=== PATIENT | female | born 1950 | race Caucasian/White ===

== ENCOUNTER 2020-03-03 22:22 | Inpatient (IN) | payer MEDICARE, OTHER ==
[~2020-03-03] VITALS: Ht 157.5 cm; Wt 77.3 kg
[2020-03-03 22:56] LABS: BASOPHILS # (AUTO) 0.1 X10'3 (0-0.2); BASOPHILS % (AUTO) 0.8 % (0-1); EOSINOPHILS # (AUTO) 0.1 X10'3 (0-0.9); EOSINOPHILS % (AUTO) 0.7 % (0-6); HEMATOCRIT 42.2 % (35.0-45.0); HEMOGLOBIN 14.2 g/dl (12.0-16.0); LYMPHOCYTES # (AUTO) 5.6 X10'3 (1.1-4.8); MEAN CORPUSCULAR HEMOGLOBIN 31.8 PG (27.0-31.0); MEAN CORPUSCULAR HGB CONC 33.7 g/dL (33.0-36.5); MEAN CORPUSCULAR VOLUME 94.6 FL (78-98); MEAN PLATELET VOLUME 9.2 FL (7.4-10.4); MONOCYTES # (AUTO) 1.3 X10'3 (0-0.9); MONOCYTES % (AUTO) 8.1 % (2-12); NEUTROPHILS # (AUTO) 8.5 X10'3 (1.8-7.7); NEUTROPHILS % (AUTO) 54.4 % (42-75); PLATELET COUNT 377 X10'3 (140-440); RED BLOOD COUNT 4.46 X10'6 (4.20-5.60); RED CELL DISTRIBUTION WIDTH 13.9 % (11.5-14.5); WHITE BLOOD COUNT 15.6 X10'3 (4.5-11.0)
[2020-03-03] MEDS ORDERED: pantoprazole 40 MG vial IV ONE (23:15)
[2020-03-03] MEDS ORDERED: proMETHazine 25mg rectal suppository RC ONE (23:15)
[2020-03-03] MEDS ORDERED: LORazepam 2 mg/ml vial IV ONE (23:15)
[2020-03-03] MEDS ORDERED: normal saline 1000ML IV soln IVB ONE (23:15)
[2020-03-03 23:52] LABS: ALANINE AMINOTRANSFERASE 25 U/L (12-78); ALBUMIN 3.7 G/DL (3.4-5.0); ALBUMIN/GLOBULIN RATIO 1.1 (1.1-1.5); ALKALINE PHOSPHATASE 99 IU/L (46-116); ANION GAP 12 (8-16); ASPARTATE AMINO TRANSFERASE 26 U/L (10-37); BILIRUBIN,TOTAL 0.4 MG/DL (0.1-1.0); BLOOD UREA NITROGEN 6 MG/DL (7-18); BUN/CREATININE RATIO 7.7 (6.6-38.0); CALCIUM 10.1 MG/DL (8.5-10.1); CHLORIDE 106 MMOL/L (99-107); CREATININE 0.78 MG/DL (0.40-0.90); GLUCOSE 129 MG/DL (70-104); LIPASE 89 U/L (73-393); SODIUM 145 MMOL/L (135-145); TOTAL CARBON DIOXIDE 27.5 MMOL/L (24-32); TOTAL PROTEIN 7.2 G/DL (6.4-8.2); eGFR 73 ML/MIN
[2020-03-03 23:56] LABS: POTASSIUM 2.8 MMOL/L (3.5-5.1)
[2020-03-04 00:25] LABS: CLARITY,URINE CLOUDY (Clear); COLOR,URINE YELLOW (Yellow); GLUCOSE, URINE NEGATIVE (Neg); KETONES,URINE 40 mg/dl (Neg); LEUKOCYTE ESTERASE ,URINE SMALL (Neg); NITRITES, URINE NEGATIVE (Neg); OCCULT BLOOD,URINE NEGATIVE (Neg); PROTEIN,URINE TRACE mg/dl (Neg)
[2020-03-04 00:29] LABS: UA COLLECTION TYPE CLN CATCH MIDSTREAM
[2020-03-04 00:33] LABS: BACTERIA,URINE 3+ /HPF (Neg); RBC,URINE NONE SEEN /HPF (0-2); SQUAMOUS EPITHELIAL CELL,UR FEW /LPF (FEW)
[2020-03-04] MEDS ORDERED: CefTRIAXone/D5W-Rocephin 1gm 50 ML IV ONE (01:05)
[2020-03-04] MEDS: normal saline 1000ml 1,000 ML IV SCH ×3 (01:07→14:29)
[2020-03-04] MEDS ORDERED: mag hydrox/Alum hydrox/simeth 30ml oral suspension PO PRN (01:10)
[2020-03-04] MEDS ORDERED: magnesium 4gm in 100ml NS 100 ML IV PRN (01:10)
[2020-03-04] MEDS ORDERED: potassium CL 10mEq/100ml bag 100 ML IV PRN (01:10)
[2020-03-04] MEDS ORDERED: potassium Cl 20 mEq SR tablet PO PRN (01:10)
[2020-03-04] MEDS ORDERED: magnesium hydroxide 30ml (MOM) UD suspension PO PRN (01:10)
[2020-03-04] MEDS ORDERED: magnesium Cl slow-release 64mg tablet PO PRN (01:10)
[2020-03-04] MEDS ORDERED: magnesium 2GM in 50ml NS 50 ML IV PRN (01:10)
[2020-03-04] MEDS ORDERED: bisacodyl 10mg suppository rectal RC PRN (01:10)
[2020-03-04] MEDS ORDERED: acetaminophen 325mg tablet PO PRN (01:10)
[2020-03-04] MEDS: potassium Cl 10 mEq/100mL bag IV SCH ×2 (01:50→04:16)
[2020-03-04] MEDS: ondansetron/PF 4mg/2ml inj IV PRN ×3 (01:50→18:49)
--- NOTE | 2020-03-04 02:06 | NUR ---
attempted to reach surgical to give report. unable to at this time. pt currenty getting iv abx.
[2020-03-04] MEDS ORDERED: LOSA25TA96 PO (02:27)
[2020-03-04] MEDS ORDERED: TRAZ-256 PO (02:27)
[2020-03-04] MEDS ORDERED: AMLO10TA PO (02:27)
[2020-03-04] MEDS ORDERED: PANT-47 PO (02:27)
[2020-03-04] MEDS ORDERED: MULT-1141 PO (02:27)
[2020-03-04] MEDS ORDERED: ASPI81TA52 PO (02:27)
[2020-03-04] MEDS ORDERED: ALBU0.63 NEB (02:27)
[2020-03-04] MEDS ORDERED: ZONI100C31 PO (02:27)
[2020-03-04] MEDS ORDERED: MOME17SP BOTHNARES (02:27)
[2020-03-04] MEDS ORDERED: DIPH25CA83 PO (02:27)
[2020-03-04 03:05] VITALS: BP 157/94
[2020-03-04] MEDS ORDERED: HYDROcodone/acetaminophen 5mg/325mg tablet PO PRN (03:35)
[2020-03-04] MEDS ORDERED: traMADol 50MG tablet PO PRN (03:35)
[2020-03-04] MEDS ORDERED: ROSU40TA PO (03:48)
[2020-03-04] MEDS ORDERED: SPIR25TA5 PO (03:48)
[2020-03-04] MEDS ORDERED: LACT1CAP65 PO (03:48)
[2020-03-04] MEDS ORDERED: MONT10TA26 PO (03:48)
[2020-03-04] MEDS ORDERED: AMYL1TAB PO (03:48)
[2020-03-04] MEDS ORDERED: TRAM50TA2 PO ×2 (03:48→11:16)
[2020-03-04] MEDS ORDERED: LYR75C PO (03:48)
--- NOTE | 2020-03-04 03:49 | NUR ---
dipesh rn made aware, still working on home med rec, should be done in 10 minutes. She will page hospitalist.
--- NOTE | 2020-03-04 04:20 | NUR ---
PAGER ID: [phone] MESSAGE: dipesh Erwin [phone]. re: Dot Ashby 341a. Zofran and Phenergan given, ineffective.
--- NOTE | 2020-03-04 04:55 | NUR ---
PAGER ID: [phone] MESSAGE: Evelyn Erwin [phone]. Re: Dot Ashby rm 341. Pt requesting "1mg IV Ativan" to help with her nausea, anxiety, and insomnia.
--- NOTE | 2020-03-04 04:56 | NUR ---
PAGER ID: [phone] MESSAGE: Re: Dot Ashby 341. Med Rec completed on pt.
[2020-03-04] MEDS: LORazepam 2 mg/ml vial IV PRN ×4 (05:02→18:49)
--- NOTE | 2020-03-04 05:32 | NUR ---
PAGER ID: [phone] MESSAGE: re: Dot ashton rm 341. Pt does not have a diet ordered and would like to talk about code status (may not want full code).
[2020-03-04] MEDS ORDERED: albuterol 1.25 MG/3 ML (1/2 strength) nebule NEB PRN (05:35)
--- NOTE | 2020-03-04 06:48 | NUR ---
PAGER ID: [phone] MESSAGE: Concepcion-Surg [phone] Re: Isma 341 please call would like to know if I can recheck her K+ and Mg and she only received 1 dose abx in ER
[2020-03-04 07:00] VITALS: BP 149/84
--- NOTE | 2020-03-04 07:01 | NUR ---
Spoke to Gilmar Rosales to verify isolation status on patient. Gilmar called me back after speaking to Dr Villasenor who states patient does not need to be in isolation.
[2020-03-04] MEDS ORDERED: pantoprazole 40mg Tablet.DR PO SCH (08:00)
[2020-03-04] MEDS: K and/or MAG REPLACEMENT MC SCH ×2 (08:00→20:00)
[2020-03-04] MEDS: lactobacillus rhamnosus 10,000 MMU CELLS/CAPSULE PO SCH (08:00)
[2020-03-04] MEDS ORDERED: atorvastatin 10mg tablet PO SCH (08:00)
[2020-03-04] MEDS: aspirin 81mg tablet.DR PO SCH (08:00)
[2020-03-04] MEDS: pregabalin 75mg capsule PO SCH ×2 (08:00→19:38)
[2020-03-04] MEDS: docusate sod 100mg capsule PO SCH ×2 (08:00→19:37)
[2020-03-04] MEDS: losartan 25mg tablet PO SCH (10:10)
[2020-03-04] MEDS: pantoprazole 40 MG vial IV SCH ×2 (10:10→19:37)
[2020-03-04] MEDS: CefTRIAXone/D5W-Rocephin 1gm 50 ML IV SCH (10:11)
[2020-03-04] MEDS: spironolactone 25 MG tablet PO SCH (10:11)
[2020-03-04] MEDS: amLODIPine 5mg tablet PO SCH (10:11)
[2020-03-04 10:42] LABS: ALBUMIN 3.1 G/DL (3.4-5.0); ANION GAP 11 (8-16); BLOOD UREA NITROGEN 4 MG/DL (7-18); BUN/CREATININE RATIO 6.3 (6.6-38.0); CALCIUM 9.4 MG/DL (8.5-10.1); CHLORIDE 111 MMOL/L (99-107); CREATININE 0.63 MG/DL (0.40-0.90); GLUCOSE 120 MG/DL (70-104); MAGNESIUM 1.7 MG/DL (1.5-2.4); SODIUM 146 MMOL/L (135-145); TOTAL CARBON DIOXIDE 23.9 MMOL/L (24-32); eGFR > 90 ML/MIN
[2020-03-04 10:44] LABS: POTASSIUM 2.9 MMOL/L (3.5-5.1)
[2020-03-04 10:45] LABS: BASOPHILS # (AUTO) 0.1 X10'3 (0-0.2); BASOPHILS % (AUTO) 1.1 % (0-1); EOSINOPHILS # (AUTO) 0.1 X10'3 (0-0.9); EOSINOPHILS % (AUTO) 1.5 % (0-6); HEMATOCRIT 35.3 % (35.0-45.0); HEMOGLOBIN 11.8 g/dl (12.0-16.0); LYMPHOCYTES # (AUTO) 3.1 X10'3 (1.1-4.8); LYMPHOCYTES % (AUTO) 38.4 % (21-51); MEAN CORPUSCULAR HEMOGLOBIN 31.8 PG (27.0-31.0); MEAN CORPUSCULAR HGB CONC 33.3 g/dL (33.0-36.5); MEAN CORPUSCULAR VOLUME 95.5 FL (78-98); MEAN PLATELET VOLUME 8.9 FL (7.4-10.4); MONOCYTES # (AUTO) 0.7 X10'3 (0-0.9); MONOCYTES % (AUTO) 8.7 % (2-12); NEUTROPHILS % (AUTO) 50.3 % (42-75); PLATELET COUNT 257 X10'3 (140-440); RED BLOOD COUNT 3.69 X10'6 (4.20-5.60); RED CELL DISTRIBUTION WIDTH 13.8 % (11.5-14.5)
[2020-03-04] MEDS: potassium CL 10mEq/100ml bag 100 ML IV PRN ×8 (10:53→20:14)
[2020-03-04] MEDS ORDERED: PREG100C55 PO (11:08)
[2020-03-04] MEDS ORDERED: BUPR150T6 PO (11:09)
[2020-03-04] MEDS ORDERED: ONDA4TAB12 PO (11:16)
[2020-03-04] MEDS ORDERED: LEVE500S9 PO (11:16)
[2020-03-04] MEDS ORDERED: APIX2.5T PO (11:16)
[2020-03-04] MEDS ORDERED: CLON0.1T PO (11:16)
[2020-03-04] MEDS ORDERED: LORA-269 PO (11:16)
[2020-03-04 12:00] VITALS: BP 135/73
--- NOTE | 2020-03-04 12:21 | NUR ---
Patient was wanting to speak with doctor regarding her code status. Dr Barajas aware. I went in to see patient with Dr Barajas who discussed code status with patient and patient stated that she does not want to be a full code she would like to be a DNR, Dr Barajas will make changes in orders.
--- NOTE | 2020-03-04 15:08 | NUR ---
Malnutrition consult: Pt admit for intractable n/v with abdominal pain, recently admitted at [facility] 01/02-02/06 positive for COVID and intubated for three weeks. Pt is now s/p trach and feeding tube, which have both been removed per H&P. TC to CLAUDINE Corey at [facility] who reports patient had inadequate nutrition at times during admit d/t difficulty tolerating TF however ultimately was able to tolerate Osmolite and was discharged on TF. Per RD pt had home health and ST and TF was discontinued d/t pt tolerating PO intake. CLAUDINE reports patient's first scaled wt was 87.5 kg taken 01/14 which fluctuated during admission to 84 kg then 89 kg, and ultimately was 86 kg on 02/03 just prior to discharge. Current documented wt is 77.27 kg however is not scaled. D/w RN need for obtaining a scaled weight to determine accuracy of wt loss. Pt currently on a clear liquid diet, pending documentation of PO intake. Pt with no documented decrease in muscle strength or edema. Pt appears well developed and well nourished per H&P. Pending scaled weight to assess for wt changes. Will f/u tomorrow. Addendum: 03/04/20 at [address] Amended: Links added.
--- NOTE | 2020-03-04 18:23 | NUR ---
Patient in room [facility] 341. I have received report from ABHISHEK Javier and had the opportunity to ask questions and assume patient care.
--- NOTE | 2020-03-04 18:37 | NUR ---
Problems reprioritized. Patient report given, questions answered & plan of care reviewed with Laura WEISS.
[2020-03-04 19:48] VITALS: BP 143/75
[2020-03-04] MEDS: atorvastatin 10mg tablet PO SCH (21:00)
[2020-03-04] MEDS: traZODone 50mg tablet PO SCH (21:17)
[2020-03-05] VITALS (7 sets, daily range): BP systolic 134–187; BP diastolic 65–106
[2020-03-05] MEDS: normal saline 1000ml 1,000 ML IV SCH ×2 (00:15→11:46)
[2020-03-05] MEDS: LORazepam 2 mg/ml vial IV PRN ×4 (04:09→19:51)
[2020-03-05] MEDS: ondansetron/PF 4mg/2ml inj IV PRN ×3 (04:15→19:47)
[2020-03-05 05:30] LABS: BASOPHILS # (AUTO) 0.1 X10'3 (0-0.2); BASOPHILS % (AUTO) 0.9 % (0-1); EOSINOPHILS # (AUTO) 0.3 X10'3 (0-0.9); EOSINOPHILS % (AUTO) 5.4 % (0-6); HEMATOCRIT 34.4 % (35.0-45.0); HEMOGLOBIN 11.4 g/dl (12.0-16.0); LYMPHOCYTES # (AUTO) 3.1 X10'3 (1.1-4.8); LYMPHOCYTES % (AUTO) 51.8 % (21-51); MEAN CORPUSCULAR HEMOGLOBIN 31.8 PG (27.0-31.0); MEAN CORPUSCULAR HGB CONC 33.2 g/dL (33.0-36.5); MEAN PLATELET VOLUME 9.3 FL (7.4-10.4); MONOCYTES # (AUTO) 0.5 X10'3 (0-0.9); MONOCYTES % (AUTO) 9.1 % (2-12); NEUTROPHILS % (AUTO) 32.8 % (42-75); PLATELET COUNT 222 X10'3 (140-440); RED BLOOD COUNT 3.58 X10'6 (4.20-5.60); RED CELL DISTRIBUTION WIDTH 13.7 % (11.5-14.5)
[2020-03-05 05:49] LABS: ALANINE AMINOTRANSFERASE 36 U/L (12-78); ALBUMIN 2.9 G/DL (3.4-5.0); ALBUMIN/GLOBULIN RATIO 1.1 (1.1-1.5); ALKALINE PHOSPHATASE 76 IU/L (46-116); ANION GAP 10 (8-16); ASPARTATE AMINO TRANSFERASE 46 U/L (10-37); BILIRUBIN,TOTAL 0.3 MG/DL (0.1-1.0); BLOOD UREA NITROGEN 1 MG/DL (7-18); BUN/CREATININE RATIO 1.5 (6.6-38.0); CHLORIDE 115 MMOL/L (99-107); CREATININE 0.65 MG/DL (0.40-0.90); GLUCOSE 106 MG/DL (70-104); MAGNESIUM 1.6 MG/DL (1.5-2.4); PHOSPHORUS 2.4 MG/DL (2.3-4.5); POTASSIUM 3.3 MMOL/L (3.5-5.1); SODIUM 149 MMOL/L (135-145); TOTAL CARBON DIOXIDE 24.5 MMOL/L (24-32); TOTAL PROTEIN 5.6 G/DL (6.4-8.2); eGFR 90 ML/MIN
--- NOTE | 2020-03-05 06:20 | NUR ---
Problems reprioritized. Patient report given, questions answered & plan of care reviewed with ABHISHEK Gray.
--- NOTE | 2020-03-05 07:19 | NUR ---
Patient in room [facility] 341. I have received report from Laura WEISS and had the opportunity to ask questions and assume patient care.
[2020-03-05] MEDS: K and/or MAG REPLACEMENT MC SCH ×2 (08:00→20:00)
[2020-03-05] MEDS: potassium Cl 20 mEq SR tablet PO PRN ×2 (08:57→18:58)
[2020-03-05] MEDS: aspirin 81mg tablet.DR PO SCH (08:57)
[2020-03-05] MEDS: losartan 25mg tablet PO SCH (08:57)
[2020-03-05] MEDS: amLODIPine 5mg tablet PO SCH (08:57)
[2020-03-05] MEDS: pregabalin 75mg capsule PO SCH (08:57)
[2020-03-05] MEDS: spironolactone 25 MG tablet PO SCH (08:57)
[2020-03-05] MEDS: lactobacillus rhamnosus 10,000 MMU CELLS/CAPSULE PO SCH (08:57)
[2020-03-05] MEDS: pantoprazole 40 MG vial IV SCH (08:58)
[2020-03-05] MEDS: docusate sod 100mg capsule PO SCH ×2 (08:58→20:00)
[2020-03-05] MEDS: CefTRIAXone/D5W-Rocephin 1gm 50 ML IV SCH (09:06)
[2020-03-05 09:16] LABS: PLATELET ESTIMATE NORMAL
--- NOTE | 2020-03-05 12:29 | NUR ---
patient seen by Dr Barajas and DR winn. Diet to be advanced to full lqd and then regular if patient tolerates. Working with PT, very SOB, dry cough when ambulating. Zofran given for nausea. will continue to monitor.
[2020-03-05] MEDS ORDERED: LORazepam 1 MG tablet PO PRN (14:05)
[2020-03-05] MEDS ORDERED: ipratropium/albuterol 3ml nebule NEB PRN (14:10)
--- NOTE | 2020-03-05 14:12 | NUR ---
F/u for malnutrition consult: Still no scaled weight. F/u discussion with RN today requesting scaled weight. Patient's diet has been advanced to full liquid, pending PO intake since diet advancement. Likely that pt had some weight loss with permissive underfeeding with obese BMI at [facility], although wt overall stable at discharge from [facility]. Pt currently lacks a minimum of two criteria given pt with no significant decrease in muscle strength, no edema, and appears well developed and well nourished per H&P. Will continue to follow and monitor qualifying criteria during admission. Addendum: 03/05/20 at [address] Amended: Links added.
[2020-03-05] MEDS: levetiracetam-NS 1000mg/100ml 100 ML IV SCH ×2 (14:57→20:10)
[2020-03-05] MEDS ORDERED: scopolamine 1.5mg patch.TD72 TD SCH (15:45)
[2020-03-05] MEDS ORDERED: LORazepam 2 mg/ml vial IM ONE (15:50)
[2020-03-05] MEDS ORDERED: LORazepam 2 mg/ml vial IV ONE (15:55)
[2020-03-05] MEDS: scopolamine 1.5mg patch.TD72 TD SCH ×2 (16:11→18:58)
[2020-03-05] MEDS: cloNIDine 0.1 mg tablet PO SCH (16:27)
--- NOTE | 2020-03-05 16:30 | NUR ---
patient c/o feeling very dizzy and lightheaded stated "the room is spinning" VS taken b/p 154/104, patient started to vomit. whitish colored emesis 300mls. stated then she felt like she was going to have a seizure. patient observed to be shaking and difficult to arouse. Dr Del Real paged . IV keppra administered as per EMAR. Iv Ativan given as per Emar per dr del real. Patient appeared after half an hour to be more settled.teleneuro ordered and placed in room. patient is for MRI if able to stop vomiting. Scopalamine patch placed behind right ear. will continue to monitor. Addendum: 03/05/20 at 1848 by Marina Larson RN Rapid response was called at this time
--- NOTE | 2020-03-05 17:41 | NUR ---
Called to ask for report from surgical nurse, advised she was on her break and would call back as soon as she was back.
--- NOTE | 2020-03-05 17:50 | NUR ---
Patient in room [facility] 341. I have received report from Marina and had the opportunity to ask questions and assume patient care. Addendum: 03/05/20 at 1755 by Kourtney Nielsen RN Pt currently at MRI, went to MRI approximately 15 minutes ago
--- NOTE | 2020-03-05 17:55 | NUR ---
Report given to sara patient is still in MRI
--- NOTE | 2020-03-05 18:14 | NUR ---
Problems reprioritized. Patient report given, questions answered & plan of care reviewed with Navin.
--- NOTE | 2020-03-05 18:30 | NUR ---
Patient in room [facility] 341. I have received report from Kourtney WEISS and had the opportunity to ask questions and assume patient care.
--- NOTE | 2020-03-05 18:33 | NUR ---
Problems reprioritized. Patient report given, questions answered & plan of care reviewed with Zeb WEISS.
--- NOTE | 2020-03-05 18:55 | NUR ---
Marina WEISS from Surgical called to confirm I knew the pt had Rapid called today @ 1450 for unresponsiveness, later determined to be seizure
[2020-03-05] MEDS: ipratropium/albuterol 3ml nebule NEB SCH ×2 (19:27→23:00)
[2020-03-05] MEDS: pantoprazole 40mg Tablet.DR PO SCH (20:00)
[2020-03-05] MEDS: traZODone 50mg tablet PO SCH (20:00)
[2020-03-05] MEDS ORDERED: levetiracetam 100mg/ml oral solution 5ml UD cup PO SCH (20:00)
[2020-03-05] MEDS: apixaban 2.5mg tablet PO SCH (20:00)
--- NOTE | 2020-03-05 20:30 | NUR ---
pt arrived to unit from Surgical
[2020-03-05] MEDS: atorvastatin 10mg tablet PO SCH (21:00)
--- NOTE | 2020-03-05 22:30 | NUR ---
Rapid Report Protocol= Documentation- Pts who remain in non-critical care units require the following vital signs: Temp, BP, HR, RR, SPO2, Glascow coma scale & point of care glucose if previously abnormal glucose. Addendum: 03/05/20 at 2234 by Azul Choi RN Amended: Links added.
[2020-03-06] MEDS: cloNIDine 0.1 mg tablet PO SCH ×2 (01:58→09:12)
[2020-03-06] MEDS: potassium Cl 20 mEq SR tablet PO PRN (01:58)
[2020-03-06 03:00] VITALS: BP 142/68
[2020-03-06] MEDS: ipratropium/albuterol 3ml nebule NEB SCH ×3 (03:00→10:45)
[2020-03-06 06:00] VITALS: BP 120/61
--- NOTE | 2020-03-06 06:34 | NUR ---
Problems reprioritized. Patient report given, questions answered & plan of care reviewed with Shasha Aguilar RN .
[2020-03-06 06:58] LABS: BASOPHILS # (AUTO) 0.1 X10'3 (0-0.2); BASOPHILS % (AUTO) 0.9 % (0-1); EOSINOPHILS # (AUTO) 0.3 X10'3 (0-0.9); HEMATOCRIT 34.1 % (35.0-45.0); HEMOGLOBIN 11.6 g/dl (12.0-16.0); LYMPHOCYTES # (AUTO) 3.1 X10'3 (1.1-4.8); LYMPHOCYTES % (AUTO) 49.5 % (21-51); MEAN CORPUSCULAR HEMOGLOBIN 32.5 PG (27.0-31.0); MEAN CORPUSCULAR VOLUME 95.6 FL (78-98); MEAN PLATELET VOLUME 9.1 FL (7.4-10.4); MONOCYTES # (AUTO) 0.6 X10'3 (0-0.9); MONOCYTES % (AUTO) 8.8 % (2-12); NEUTROPHILS # (AUTO) 2.3 X10'3 (1.8-7.7); NEUTROPHILS % (AUTO) 35.8 % (42-75); PLATELET COUNT 253 X10'3 (140-440); RED BLOOD COUNT 3.57 X10'6 (4.20-5.60); RED CELL DISTRIBUTION WIDTH 13.6 % (11.5-14.5); WHITE BLOOD COUNT 6.3 X10'3 (4.5-11.0)
[2020-03-06 07:16] LABS: ALANINE AMINOTRANSFERASE 52 U/L (12-78); ALBUMIN 2.9 G/DL (3.4-5.0); ALKALINE PHOSPHATASE 80 IU/L (46-116); ANION GAP 8 (8-16); ASPARTATE AMINO TRANSFERASE 50 U/L (10-37); BILIRUBIN,TOTAL 0.2 MG/DL (0.1-1.0); BLOOD UREA NITROGEN 1 MG/DL (7-18); BUN/CREATININE RATIO 1.4 (6.6-38.0); CALCIUM 9.7 MG/DL (8.5-10.1); CHLORIDE 113 MMOL/L (99-107); CREATININE 0.69 MG/DL (0.40-0.90); GLUCOSE 116 MG/DL (70-104); MAGNESIUM 1.7 MG/DL (1.5-2.4); PHOSPHORUS 3.5 MG/DL (2.3-4.5); POTASSIUM 4.1 MMOL/L (3.5-5.1); SODIUM 147 MMOL/L (135-145); TOTAL CARBON DIOXIDE 26.2 MMOL/L (24-32); TOTAL PROTEIN 5.9 G/DL (6.4-8.2); eGFR 84 ML/MIN
[2020-03-06] MEDS: docusate sod 100mg capsule PO SCH (08:00)
[2020-03-06] MEDS ORDERED: pregabalin 75mg capsule PO SCH (08:00)
[2020-03-06] MEDS ORDERED: buPROPion SR 150mg tablet PO SCH (08:00)
[2020-03-06] MEDS ORDERED: pregabalin 25mg capsule PO SCH (08:00)
--- NOTE | 2020-03-06 08:40 | NUR ---
hander in in with patient.
[2020-03-06] MEDS: lactobacillus rhamnosus 10,000 MMU CELLS/CAPSULE PO SCH (09:12)
[2020-03-06] MEDS: amLODIPine 5mg tablet PO SCH (09:13)
[2020-03-06] MEDS: spironolactone 25 MG tablet PO SCH (09:13)
[2020-03-06] MEDS: pantoprazole 40mg Tablet.DR PO SCH (09:13)
[2020-03-06] MEDS: aspirin 81mg tablet.DR PO SCH (09:14)
[2020-03-06] MEDS: losartan 25mg tablet PO SCH (09:14)
[2020-03-06] MEDS: apixaban 2.5mg tablet PO SCH (09:14)
[2020-03-06] MEDS: CefTRIAXone/D5W-Rocephin 1gm 50 ML IV SCH (09:15)
[2020-03-06] MEDS: LORazepam 2 mg/ml vial IV PRN (09:24)
[2020-03-06] MEDS: levetiracetam-NS 1000mg/100ml 100 ML IV SCH (09:25)
[2020-03-06 10:00] VITALS: BP 125/72
[2020-03-06] MEDS ORDERED: ZONI100C31 PO ×2 (11:43)
--- NOTE | 2020-03-11 11:01 | NUR ---
Case Management DC follow up: spoke to pt via telephone. S/P: abd pain, NV, UTI Reports: " tired, doing better". Denies: acute cp, SOB at rest, resp distress, vertigo, syncope,weakness, blurry vision, N/V, REYES, emergent general pain, abd tenderness/distension, fever. pt is eating regularly at this time, [employer]. [facility] [place] part of [place]. Verbalizes understanding of s/s that warrant 9-11/ER visit for evaluation. Verbalizes understanding of new Rx, Zonisamide and why prescribed, resumes current Rx/taking as ordered, no ase r/t polypharmacy. Acknowledges need to schedule/keep follow up appts w/ PCP/Dr Mckeon 03/11/20, pt will contact Dr Colby David's office to confirm follow up appt r/t hx Covid-19. Needs met, questions answered at DC, no further questions at this time.
== END 2020-03-06 13:48 | disposition home health service (06) | DRG 690 ==
LOC: ER 22:23 → ED HOLD 03-04 01:07 → UNDOADMIN 03-04 01:54 → ED HOLD 03-04 03:00 → SUR 3N 03-04 03:00 → ORTHO 4S 03-05 20:27
PROVIDERS: ADMIT Family Medicine; ATTEND Family Medicine
PROC: 4A10X4Z Monitoring of Central Nervous Electrical Activity, External Approach (ICD-10-PCS; principal; 2020-03-06)
DX: N39.0 Urinary tract infection, site not specified (principal); E87.0 Hyperosmolality and hypernatremia; G40.909 Epilepsy, unspecified, not intractable, without status epilepticus; E87.6 Hypokalemia; K58.0 Irritable bowel syndrome with diarrhea; J44.9 Chronic obstructive pulmonary disease, unspecified; G47.30 Sleep apnea, unspecified; Z66 Do not resuscitate; E78.5 Hyperlipidemia, unspecified; E86.0 Dehydration; I50.9 Heart failure, unspecified; I48.91 Unspecified atrial fibrillation; E11.9 Type 2 diabetes mellitus without complications; F41.8 Other specified anxiety disorders; I11.0 Hypertensive heart disease with heart failure; Z87.11 Personal history of peptic ulcer disease; Z88.8 Allergy status to other drugs, medicaments and biological substances; Z79.899 Other long term (current) drug therapy; Z79.82 Long term (current) use of aspirin; Z86.19 Personal history of other infectious and parasitic diseases
CPT/HCPCS: 36415; 70544; 70551; 71045; 80048; 80053; 81001; 82948; 83605; 83690; 83735; 84100; 84132; 84145; 85025; 87040; 87081; 87088; 94640; 94760; 95816; 97116; 97161; 97530; 99285; C9113; G0378; J0696; J1953; J2060; J2405; J3480; J7030